=== PATIENT | male | born 1945 | race Caucasian/White ===

== ENCOUNTER → 2020-03-18 | Outpatient (CLI) | payer OTHER | END | disposition home or self-care (01) | LOC: RADCTMAIN 17:17 | PROVIDERS: ATTEND Surgery | DX: I65.29 Occlusion and stenosis of unspecified carotid artery (principal) | CPT/HCPCS: 82565; 84520 ==

== ENCOUNTER → 2020-12-24 | Outpatient (CLI) | payer MEDICARE ==
[2020-12-24 15:47] LABS: Basophils % (A) 1 %; Eosinophils # (A) 0.1 k/uL (0-0.7); Eosinophils % (A) 2 %; HCT 29.6 % (39.0-53.0); HGB 10.2 gm/dL (13.0-17.5); Lymphocytes # (A) 1.4 k/uL (1.0-4.8); Lymphocytes % (A) 23 %; MCH 32.1 pg (25.0-35.0); MCHC 34.6 g/dL (31.0-37.0); MCV 92.8 fL (80.0-100.0); Monocytes # (A) 0.4 k/uL (0-1.0); Monocytes % (A) 6 %; Neutrophils # (A) 4.1 k/uL (1.3-7.7); Neutrophils % (A) 66 %; Platelet Count 184 k/uL (150-450); RBC 3.19 m/uL (4.30-5.90); RDW 13.3 % (11.5-15.5); WBC 6.2 k/uL (3.8-10.6)
[2020-12-24 15:55] LABS: Potassium 5.3 mmol/L (3.5-5.1)
== END | disposition home or self-care (01) ==
LOC: LABPAT 14:39
PROVIDERS: ATTEND Surgery
DX: Z01.818 Encounter for other preprocedural examination (principal); R94.31 Abnormal electrocardiogram [ECG] [EKG]; R00.1 Bradycardia, unspecified
CPT/HCPCS: 36415; 80051; 82565; 84520; 85025; 93005

== ENCOUNTER 2020-12-26 06:51 | Inpatient (IN) | payer MEDICARE ==
[2020-12-23 10:51] VITALS: BMI 29.0
[2020-12-26] MEDS ORDERED: MIDAZOLAM 2 MG/2 ML VIAL IV PRN (07:13)
[2020-12-26] MEDS ORDERED: LIDOCAINE 1% (10MG/ML) FOR IV START INTRADERMA PRN (07:13)
[2020-12-26] MEDS ORDERED: HYDROmorphone 0.5 MG/0.5 ML SYRINGE IVP PRN (07:13)
[2020-12-26] MEDS ORDERED: DEXAMETHASONE SOD PHOSPHATE 4 MG/ML 1 ML VIAL IV ONE (07:13)
[2020-12-26] MEDS ORDERED: ONDANSETRON 4 MG/2 ML VIAL IVP ONE (07:13)
[2020-12-26] MEDS ORDERED: NITROGLYCERIN-D5W PMX 50 MG in DEXTROSE/WATER 1 250ML.BAG IV SCH (07:30)
[2020-12-26] MEDS ORDERED: PHENYLEPHRINE 40 MG in SODIUM CHLORIDE 0.9% 250 ML IV SCH (07:30)
[2020-12-26] MEDS ORDERED: NITROGLYCERIN SL TABS 0.4 MG TAB SUBLINGUAL ONE (08:05)
[2020-12-26] MEDS ORDERED: GLYCOPYRROLATE 0.2 MG/ML 2 ML VIAL ONE (08:05)
[2020-12-26] MEDS ORDERED: ePHEDrine SULFATE/0.9% NACL/PF 50 MG/5 ML SYRINGE IV ONE (08:05)
[2020-12-26] MEDS ORDERED: PHENYLEPHRINE-0.9% NACL SYG 1,000 MCG/10 ML SYRINGE ONE (08:05)
[2020-12-26] MEDS ORDERED: LIDOCAINE 1% INJ 10MG/ML (20 ML MDV) ONE (08:05)
[2020-12-26] MEDS ORDERED: LABETALOL 5 MG/ML VIAL MDV ONE (08:05)
[2020-12-26] MEDS ORDERED: ROCURONIUM 10 MG/ML (5 ML VIAL) IV ONE (08:05)
[2020-12-26] MEDS ORDERED: fentaNYL (PF) 50 MCG/ML 2 ML AMP ONE (08:05)
[2020-12-26] MEDS ORDERED: MIDAZOLAM 2 MG/2 ML VIAL ONE (08:05)
[2020-12-26] MEDS ORDERED: PROPOFOL 10 MG/ML 20 ML VIAL IV ONE (08:05)
[2020-12-26] MEDS ORDERED: HEPARIN SODIUM,PORCINE 10,000 UNIT/ML 1 ML VIAL ONE (08:05)
[2020-12-26] MEDS ORDERED: ESMOLOL 100 MG/10 ML VIAL ONE (08:05)
[2020-12-26] MEDS: LACTATED RINGERS 1,000 ML IV SCH (08:05)
[2020-12-26] MEDS ORDERED: NEOSTIGMINE 1 MG/ML 10 ML VIAL ONE (08:05)
[2020-12-26] MEDS ORDERED: SODIUM CHLORIDE 0.9% 100 ML with CLINDAMYCIN 600 MG IV ONE ×2 (09:00)
[2020-12-26] MEDS ORDERED: LIDOCAINE 1% INJ 10MG/ML (20 ML MDV) SQ ONE (09:30)
[2020-12-26] MEDS ORDERED: THROMBIN (BOVINE) 5,000 UNIT VIAL TOPICAL ONE ×2 (09:31)
[2020-12-26] MEDS ORDERED: GELATIN SPONGE,ABSORB (LARGE) 1 EACH SPONGE TOPICAL ONE (09:31)
[2020-12-26] MEDS ORDERED: HEPARIN SODIUM (1,000 UNIT/ML) 2,000 UNIT in SODIUM CHLORIDE 0.9% 1,000 ML IRRIGATION ONE (09:45)
[2020-12-26] MEDS ORDERED: LACTATED RINGERS 1,000 ML IV ONE (11:38)
[2020-12-26] MEDS ORDERED: TRIMETHOBENZAMIDE 100 MG/ML 2 ML VIAL IM PRN (11:49)
[2020-12-26] MEDS ORDERED: ACETAMINOPHEN TAB 325 MG TAB PO PRN (11:49)
[2020-12-26] MEDS ORDERED: BENZOCAINE/MENTHOL LOZENG 1 EACH LOZENGE MUCOUS MEM PRN (11:49)
[2020-12-26] MEDS ORDERED: MAG HYDROX/AL HYDROX/SIMETH 30 ML CUP PO PRN (11:49)
--- NOTE | 2020-12-26 11:49 | P.OP ---
Date of Procedure: 12/26/20 Description of Procedure: Preoperative Diagnosis: [Left] Internal carotid artery stenosis Postoperative Diagnosis: Same Procedure: [Left] carotid endarterectomy with patch angioplasty Ultrasound-guided right common femoral vein access Placement of central venous catheter Anesthesia: GET Surgeon: Felecia Benson DO Asst.: Bebe Burton Estimated Blood Loss (ml): [75 mL] IV Fluids: [See records] Urine Output: [See anesthesia documentation] Specimen: [Cervical lymph nodes, left carotid plaque] Condition: stable Disposition: PACU Findings and indications: [Patient is a 75-year-old male who recently was recommended to undergo a carotid endarterectomy due hemodynamically significant stenosis. This is over 1 year ago that it was recommended, he was unable to undergo a CT angiogram due to his renal insufficiency nor an MRA due to his pacemaker device. Given these findings he was recommended to have a carotid endarterectomy based upon ultrasound imaging. Given the fact that had been so long since his previous imaging the office he was rescanned improve the patency. There was found to be continued severe high-grade stenosis. Risks and benefits were discussed. He presented to the hospital for intervention] Procedure in detail: After written informed consent was obtained the patient all risks benefits and competitions were described the patient is brought to the operative suite and laid in a supine position. There was significant difficulty in getting IV access by the anesthesia team therefore ultrasound was utilized in the right common femoral vein was identified. The area was cleansed with alcohol solution. Using ultrasound the common femoral vein was accessed on first stick with return of dark venous, nonpulsatile blood. Using Seldinger technique a previously flushed triple lumen catheter was placed and sutured in place. It aspirated and flushed well. The area of the neck was prepped and draped in usual sterile fashion. A timeout was performed in normal fashion antibiotics were administered prior to incision. An oblique incision was then created just anterior to the sternocleidomastoid musculature with a scalpel and dissection was carried down to the carotid sheath. The carotid sheath was then entered after facial vein was located and suture ligated in normal fashion. The common carotid, internal carotid, external carotid and superior thyroid arteries were located and dissected free in a meticulous fashion circumferentially and controlled with vessel loops. There was significant adherent tissue in the level of the carotid bulb. There were slightly enlarged lymph nodes that were sent for pathology Attention was then placed to locating the vagus nerve as well as hypoglossal nerve which were both spared. Once controlled, patient was administered heparin and followed with ACTs for appropriate heparinization. Once ACT was appropriate, the proximal and distal aspects of the dissection were then controlled with vascular clamps. Arteriotomy was then created with 11 blade scalpel and extended with Live Bills scissors. Utilizing pressure tubing stump pressures were obtained and were []. No shunt was required. An endarterectomy was then performed with a [place] elevator. The plaque was transected proximally and then feathered at the distal aspect of the internal carotid artery and removed. There was significant distal plaquing. It was tacked down with interrupted sutures of 7-0 Prolene. The area was copiously irrigated with heparinized saline and all free debris was removed. A 0.8 x 8 cm bovine pericardial patch was then chosen and patch angioplasty was performed with 6-0 Prolene suture in a running fashion. Prior to last sutures being placed the inflow was released flushing any free debris out of the patch. This was reclamped and the internal carotid artery was released revealing good brisk flow and was once again reclamped. The external carotid and superior thyroid artery were then released followed by the common carotid artery to allow any free debris to be flushed into the external system. Final sutures were pl aced and secured. Internal carotid artery control was then released. Good pulsatile flow was noted through the patch and a Doppler was utilized demonstrating good brisk flow into the internal, external carotid arteries without any signs of obstruction. Hemostasis was then assured with interrupted sutures of 6-0 Prolene as well as thrombin and Gelfoam. A 10-[place] ASHISH drain was then placed in normal fashion and secured with 3-0 nylon suture. The incision was then closed in a multilayer fashion after hemostasis was assured. The skin was then cleansed and dressings were placed. Patient tolerated the procedure well and was following commands and moving all extremities. Patient was then sent to PACU for recovery.
[2020-12-26 13:04] LABS: Glucose,Whole Blood 154 mg/dL (75-99)
[2020-12-26] MEDS ORDERED: AMMONIUM LACTATE 12% CREAM 140 GM TUBE TOPICAL PRN (13:51)
[2020-12-26] MEDS ORDERED: TRIAMCINOLONE 0.1% CREAM 80 GM TUBE TOPICAL PRN (13:51)
[2020-12-26] MEDS ORDERED: ALBUTEROL NEBULIZED 2.5 MG/3 ML INHALATION PRN (13:51)
--- NOTE | 2020-12-26 14:28 | P.CONS ---
History of Present Illness - Reason for Consult Congestive heart failure - History of Present Illness 75-year-old pleasant male is admitted for elective left sided carotid endarterectomy. Patient successfully underwent surgery. Patient does have history of congestive heart failure presently receiving IV fluids were discontinued. Patient states he has an EF of around 30% although echocardiac exam is not available in the system at this time. Patient has history of chronic kidney disease stage IV with baseline creatinine of around 2.1. Patient is presently on nitroglycerin drip. REVIEW OF SYSTEMS: CONSTITUTIONAL: No fever, no malaise, no fatigue. HEENT: No recent visual problems or hearing problems. Denied any sore throat. CARDIOVASCULAR: No chest pain, orthopnea, PND, no palpitations, no syncope. PULMONARY: No shortness of breath, no cough, no hemoptysis. GASTROINTESTINAL: No diarrhea, no nausea, no vomiting, no abdominal pain. NEUROLOGICAL: No headaches, no weakness, no numbness. HEMATOLOGICAL: Denies any bleeding or petechiae. GENITOURINARY: Denies any burning micturition, frequency, or urgency. MUSCULOSKELETAL/RHEUMATOLOGICAL: Denies any joint pain, swelling, or any muscle pain. ENDOCRINE: Denies any polyuria or polydipsia. The rest of the 14-point review of systems is negative. PHYSICAL EXAMINATION: GENERAL: The patient is alert and oriented x3, not in any acute distress. Well developed, well nourished. HEENT: Pupils are round and equally reacting to light. EOMI. No scleral icterus. No conjunctival pallor. Normocephalic, atraumatic. No pharyngeal erythema. No thyromegaly. Left-sided Noted postsurgical effect CARDIOVASCULAR: S1 and S2 present. No murmurs, rubs, or gallops. PULMONARY: Chest is clear to auscultation, no wheezing or crackles. ABDOMEN: Soft, nontender, nondistended, normoactive bowel sounds. No palpable organomegaly. MUSCULOSKELETAL: No joint swelling or deformity. EXTREMITIES: No cyanosis, clubbing, or pedal edema. NEUROLOGICAL: Gross neurological examination did not reveal any focal deficits. SKIN: No rashes. Assessment and plan Congestive heart failure chronic systolic dysfunction without any acute exacerbation IV fluids were discontinued patient will be resumed and home dose of 4 Lasix and Aldactone. -Hyperkalemia secondary to potassium supplementation and lisinopril lisinopril probably will be continued will hold off on as an supplementation repeat potassium tomorrow -Gastroesophageal reflux disease -Hyperlipidemia -Hypertension -COPD without any acute exacerbation patient quit smoking many years ago DVT prophylaxis: As per primary service Past Medical History Past Medical History: Cancer, Heart Failure, COPD, GERD/Reflux, Hyperlipidemia, Hypertension, Myocardial Infarction ([place]), Osteoarthritis ([place]), Pneumonia, Skin Disorder Additional Past Medical History / Comment(s): blockage left carotid artery, hx palpications, red itchy skin areas, dry skin, anemia, hx prostate cancer-tx with implants, Last Myocardial Infarction Date:: unknown History of Any Multi-Drug Resistant Organisms: None Reported Past Surgical History: AICD, Hernia Repair, Tonsillectomy Past Anesthesia/Blood Transfusion Reactions: No Reported Reaction Additional Past Anesthesia/Blood Transfusion Reaction / Comm: claustrophobia Type of Cardiac Device: AICD Device Placement Date:: St [facility] Smoking Status: Former smoker - Past Family History Father Family Medical History: CVA/TIA, Myocardial Infarction ([place]) Medications and Allergies Home Medications Medication Instructions Recorded Confirmed Type Albuterol Sulfate [Proair Hfa] 1 - 2 puff INHALATION BID PRN 12/23/20 12/23/20 History Ammonium Lactate Cream [Lac-Hydrin 1 applic TOPICAL DAILY PRN 12/23/20 12/23/20 History 12% Cream] Aspirin [Adult Low Dose Aspirin EC] 81 mg PO DAILY 12/23/20 12/23/20 History Budesonide/Formoterol Fumarate 2 puff INHALATION BID 12/23/20 12/23/20 History [Budesonide-Formoterol 160-4.5] Carvedilol [Coreg] 12.5 mg PO BID 12/23/20 12/23/20 History Furosemide [Lasix] 40 mg PO DAILY 12/23/20 12/23/20 History Simvastatin [Zocor] 40 mg PO HS 12/23/20 12/23/20 History Spironolactone [Aldactone] 25 mg PO DAILY 12/23/20 12/23/20 History Tamsulosin HCl [Flomax] 0.4 mg PO BID 12/23/20 12/23/20 History Tiotropium 2.5 Mcg/Puff [Spiriva 2 puff INHALATION DAILY 12/23/20 12/23/20 History Respimat 2.5 Mcg] Triamcinolone 0.1% Cream [Kenalog 1 applicatio TOPICAL DAILY PRN 12/23/20 12/23/20 History 0.1% Cream] lisinopriL [Zestril] 5 mg PO DAILY 12/23/20 12/23/20 History Potassium Chloride [Potassium 8 meq PO DAILY 12/26/20 12/26/20 History Chloride ER] Allergies Allergy/AdvReac Type Severity Reaction Status Date / Time cephalexin [From Keflex] Allergy shakes and Verified 12/26/20 07:20 nervous feeling iodine Allergy Unknown Verified 12/26/20 07:20 levofloxacin [From Levaquin] Allergy Rash/Hives Verified 12/26/20 07:20 Physical Exam Vitals: Vital Signs Temp Pulse Resp BP BP BP Pulse Ox 12/26/20 12:45 62 16 175/79 140/65 100 12/26/20 12:30 62 16 170/62 162/56 100 12/26/20 12:15 62 16 170/62 168/74 100 12/26/20 12:00 63 16 162/74 172/50 100 12/26/20 11:53 96.8 F L 62 16 155/65 167/69 99 12/26/20 07:35 97.1 F L 67 16 155/63 150/65 98 Intake and Output 12/25/20 12/26/20 12/26/20 22:59 06:59 14:59 Intake Total 1805 Output Total 2150 Balance -345 Intake: IV 1805 Output: Urine 2100 Estimated Blood Loss 50 Other: Weight 95 kg Results CBC & Chem 7: 12/26/20 08:05 Labs: Abnormal Lab Results - Last 24 Hours (Table) 12/26/20 12/26/20 Range/Units 08:05 13:03 Potassium 5.2 H (3.5-5.1) mmol/L POC Glucose (mg/dL) 154 H (75-99) mg/dL
[2020-12-26 15:23] LABS: Basophils % (A) 0 %; Eosinophils % (A) 0 %; HCT 29.7 % (39.0-53.0); HGB 10.4 gm/dL (13.0-17.5); Lymphocytes # (A) 0.8 k/uL (1.0-4.8); Lymphocytes % (A) 9 %; MCH 31.6 pg (25.0-35.0); MCHC 34.9 g/dL (31.0-37.0); MCV 90.5 fL (80.0-100.0); Mean Platelet Volume 8.2; Monocytes # (A) 0.2 k/uL (0-1.0); Monocytes % (A) 2 %; Neutrophils # (A) 8.3 k/uL (1.3-7.7); Neutrophils % (A) 89 %; Platelet Count 193 k/uL (150-450); RBC 3.29 m/uL (4.30-5.90); WBC 9.4 k/uL (3.8-10.6)
[2020-12-26 15:40] LABS: INR 0.9 (<1.2); Prothrombin Time 10.2 sec (9.0-12.0)
[2020-12-26 15:50] LABS: Calcium 9.3 mg/dL (8.4-10.2); Potassium 4.8 mmol/L (3.5-5.1)
--- NOTE | 2020-12-26 16:37 | P.CNPUL ---
History of Present Illness Consult date: 12/26/20 Requesting physician: Felecia Benson Reason for consult: other Chief complaint: severe carotid stenosis History of present illness: 75-year-old white male patient with past medical history of significant left- sided carotid stenosis, hypertension, hyperlipidemia, chronic CHF with systolic dysfunction, and ejection fraction of 30%, AICD placement COPD not oxygen dependent at baseline, history of prostate cancer, former smoker, patient carries [id number] smoking history currently in remission for the past 6 years who underwent left-sided carotid endarterectomy today on 12/26/2020. Following the procedure patient is seen in intensive care unit where he was admitted for close hemodynamic monitoring, he is resting comfortably in bed, breathing comfortably, he is currently on 6 L of oxygen with a pulse ox 100%. Afebrile, hemodynamically stable, he is on small amount of IV nitroglycerin infusing at a rate of 15 mics per kilo per minute, and 0.9 normal saline at 10 mL per hour, in sinus mechanism, left neck incision is clean dry and intact, with small soft hematoma along the incision line. ASHISH drain draining small amount of cigarettes output with some clots. Trachea is midline, patient is breathing comfortably. Review of Systems All systems: negative Constitutional: Denies chills, Denies fever Eyes: denies blurred vision, denies pain Ears, nose, mouth and throat: Denies headache, Denies sore throat Cardiovascular: Denies chest pain, Denies shortness of breath Respiratory: Reports dyspnea, Denies cough Gastrointestinal: Denies abdominal pain, Denies diarrhea, Denies nausea, Denies vomiting Musculoskeletal: Denies myalgias Integumentary: Denies pruritus, Denies rash Neurological: Denies numbness, Denies weakness Psychiatric: Denies anxiety, Denies depression Endocrine: Denies fatigue, Denies weight change Past Medical History Past Medical History: Cancer, Heart Failure, COPD, GERD/Reflux, Hyperlipidemia, Hypertension, Myocardial Infarction ([place]), Osteoarthritis ([place]), Pneumonia, Skin Disorder Additional Past Medical History / Comment(s): blockage left carotid artery, hx palpications, red itchy skin areas, dry skin, anemia, hx prostate cancer-tx with implants, Last Myocardial Infarction Date:: unknown History of Any Multi-Drug Resistant Organisms: None Reported Past Surgical History: AICD, Hernia Repair, Tonsillectomy Past Anesthesia/Blood Transfusion Reactions: No Reported Reaction Additional Past Anesthesia/Blood Transfusion Reaction / Comment(s): cla ustrophobia Type of Cardiac Device: AICD Device Placement Date:: Smoking Status: Former smoker - Past Family History Father Family Medical History: CVA/TIA, Myocardial Infarction ([place]) Medications and Allergies Home Medications Medication Instructions Recorded Confirmed Type Albuterol Sulfate [Proair Hfa] 1 - 2 puff INHALATION BID PRN 12/23/20 12/23/20 History Ammonium Lactate Cream [Lac-Hydrin 1 applic TOPICAL DAILY PRN 12/23/20 12/23/20 History 12% Cream] Aspirin [Adult Low Dose Aspirin EC] 81 mg PO DAILY 12/23/20 12/23/20 History Budesonide/Formoterol Fumarate 2 puff INHALATION BID 12/23/20 12/23/20 History [Budesonide-Formoterol 160-4.5] Carvedilol [Coreg] 12.5 mg PO BID 12/23/20 12/23/20 History Furosemide [Lasix] 40 mg PO DAILY 12/23/20 12/23/20 History Simvastatin [Zocor] 40 mg PO HS 12/23/20 12/23/20 History Spironolactone [Aldactone] 25 mg PO DAILY 12/23/20 12/23/20 History Tamsulosin HCl [Flomax] 0.4 mg PO BID 12/23/20 12/23/20 History Tiotropium 2.5 Mcg/Puff [Spiriva 2 puff INHALATION DAILY 12/23/20 12/23/20 History Respimat 2.5 Mcg] Triamcinolone 0.1% Cream [Kenalog 1 applicatio TOPICAL DAILY PRN 12/23/20 12/23/20 History 0.1% Cream] lisinopriL [Zestril] 5 mg PO DAILY 12/23/20 12/23/20 History Potassium Chloride [Potassium 8 meq PO DAILY 12/26/20 12/26/20 History Chloride ER] Allergies Allergy/AdvReac Type Severity Reaction Status Date / Time cephalexin [From Keflex] Allergy shakes and Verified 12/26/20 07:20 nervous feeling iodine Allergy Unknown Verified 12/26/20 07:20 levofloxacin [From Levaquin] Allergy Rash/Hives Verified 12/26/20 07:20 Physical Exam Vitals: Vital Signs Temp Pulse Pulse Resp BP BP BP 12/26/20 16:00 64 16 145/59 12/26/20 15:45 65 16 150/64 12/26/20 15:30 62 16 147/65 12/26/20 15:15 61 17 152/62 12/26/20 15:00 62 13 155/65 12/26/20 14:45 56 L 13 152/66 12/26/20 14:30 62 11 L 146/67 12/26/20 14:00 57 L 21 157/71 12/26/20 13:45 58 L 13 151/71 12/26/20 13:30 59 L 14 167/69 12/26/20 13:15 59 L 14 158/72 12/26/20 12:45 62 16 175/79 12/26/20 12:30 62 16 170/62 12/26/20 12:15 62 16 170/62 12/26/20 12:00 63 16 162/74 12/26/20 11:53 96.8 F L 62 16 155/65 12/26/20 07:35 97.1 F L 67 16 155/63 150/65 BP Pulse Ox 12/26/20 16:00 99 12/26/20 15:45 99 12/26/20 15:30 98 12/26/20 15:15 98 12/26/20 15:00 99 12/26/20 14:45 99 12/26/20 14:30 97 12/26/20 14:00 99 12/26/20 13:45 99 12/26/20 13:30 100 12/26/20 13:15 100 12/26/20 12:45 140/65 100 12/26/20 12:30 162/56 100 12/26/20 12:15 168/74 100 12/26/20 12:00 172/50 100 12/26/20 11:53 167/69 99 12/26/20 07:35 98 Intake and Output 12/26/20 12/26/20 12/26/20 06:59 14:59 22:59 Intake Total 1805 Output Total 2170 Balance -365 Intake: IV 1805 Output: Drainage 20 Left Neck 20 Urine 2100 Estimated Blood Loss 50 Other: Weight 95 kg GENERAL EXAM: Alert, very pleasant, 64-year-old white female, resting in bed, on 6 L of oxygen comfortable in no apparent distress. HEAD: Normocephalic/atraumatic. EYES: Normal reaction of pupils, equal size. Conjunctiva pink, sclera white. NOSE: Clear with pink turbinates. THROAT: No erythema or exudates. NECK: No masses, no JVD, no thyroid enlargement, no adenopathy. Left neck oblique incision is clean dry and intact, with small amount of swelling and hematoma along the incision line, soft, ASHISH drain is in place draining small amount of sanguinous output with some clots CHEST: No chest wall deformity. Symmetrical expansion. LUNGS: Equal air entry with no crackles, wheeze, rhonchi or dullness. CVS: Regular rate and rhythm, normal S1 and S2, no gallops, no murmurs, no rubs ABDOMEN: Soft, nontender. No hepatosplenomegaly, normal bowel sounds, no guarding or rigidity. EXTREMITIES: No clubbing, no edema, no cyanosis, 2+ pulses and upper and lower extremities. MUSCULOSKELETAL: Muscle strength and tone normal. SPINE: No scoliosis or deformity SKIN: No rashes CENTRAL NERVOUS SYSTEM: Alert and oriented -3. No focal deficits, tone is normal in all 4 extremities. PSYCHIATRIC: Alert and oriented -3. Appropriate affect. Intact judgment and insight. Results - Laboratory Findings CBC and BMP: 12/26/20 15:15 12/26/20 15:15 PT/INR, D-dimer PT 10.2 sec (9.0-12.0) 12/26/20 15:15 INR 0.9 (<1.2) 12/26/20 15:15 Abnormal lab findings: Abnormal Labs 12/26/20 12/26/20 12/26/20 08:05 13:03 15:15 RBC 3.29 L Hgb 10.4 L Hct 29.7 L Neutrophils # 8.3 H Lymphocytes # 0.8 L Potassium 5.2 H Chloride Carbon Dioxide BUN Creatinine Glucose POC Glucose (mg/dL) 154 H 12/26/20 15:15 RBC Hgb Hct Neutrophils # Lymphocytes # Potassium Chloride 110 H Carbon Dioxide 16 L BUN 31 H Creatinine 1.70 H Glucose 151 H POC Glucose (mg/dL) Assessment and Plan Plan: Assessment: #1. Severe left-sided carotid stenosis, status post carotid endarterectomy, postoperative day #0 #2. Hypertension #3. Hyperlipidemia #4. History of systolic CHF #5. Ischemic cardiomyopathy status post AICD placement #6. History of [id number] smoking in remission for last 6 years #7. COPD not oxygen dependent at baseline #8. Peripheral vascular disease Plan: Continue antibiotics per vascular surgery Hemodynamic patient is stable, on small amount of nitroglycerin Monitor neurological status every 4 hours Monitor incision site for bleeding or increased hematoma Home medications have been restarted Pain control Incentive spirometer to the bedside Monitor left neck hematoma Monitor ASHISH drain output Patient will be ICU overnight Time with Patient: Greater than 30
[2020-12-26] MEDS: carvediloL 12.5 MG TAB PO SCH (17:54)
[2020-12-26] MEDS: TAMSULOSIN 0.4 MG CAP.ER.24H PO SCH (20:56)
[2020-12-26] MEDS: HEPARIN SODIUM,PORCINE/PF 5,000 UNIT/0.5 ML SYRINGE SQ SCH (20:56)
[2020-12-26] MEDS ORDERED: ATORVASTATIN 20 MG TAB PO SCH (21:00)
[2020-12-26] MEDS: SYMBICORT 160-4.5 MCG INHALER INHALATION SCH (21:35)
[2020-12-27 02:02] VITALS: TEMP 98.7
[2020-12-27 04:58] LABS: Basophils % (A) 0 %; Eosinophils % (A) 0 %; HCT 27.9 % (39.0-53.0); HGB 9.7 gm/dL (13.0-17.5); Lymphocytes # (A) 0.8 k/uL (1.0-4.8); Lymphocytes % (A) 9 %; MCH 31.4 pg (25.0-35.0); MCHC 34.7 g/dL (31.0-37.0); MCV 90.5 fL (80.0-100.0); Mean Platelet Volume 8.9; Monocytes # (A) 0.5 k/uL (0-1.0); Monocytes % (A) 5 %; Neutrophils # (A) 7.8 k/uL (1.3-7.7); Neutrophils % (A) 85 %; Platelet Count 192 k/uL (150-450); RBC 3.08 m/uL (4.30-5.90); RDW 13.2 % (11.5-15.5); WBC 9.3 k/uL (3.8-10.6)
[2020-12-27] MEDS: SYMBICORT 160-4.5 MCG INHALER INHALATION SCH (07:30)
[2020-12-27] MEDS ORDERED: TIOTROPIUM 2.5 MCG INHALER INHALATION SCH (08:00)
[2020-12-27] MEDS ORDERED: IPRATROPIUM 0.5 MG/2.5 ML NEBU INHALATION SCH (08:00)
[2020-12-27] MEDS: TAMSULOSIN 0.4 MG CAP.ER.24H PO SCH (08:36)
[2020-12-27] MEDS: carvediloL 12.5 MG TAB PO SCH (08:36)
[2020-12-27] MEDS: HEPARIN SODIUM,PORCINE/PF 5,000 UNIT/0.5 ML SYRINGE SQ SCH (08:36)
--- NOTE | 2020-12-27 08:55 | P.PN ---
Subjective Progress Note Date: 12/27/20 Principal diagnosis: Left carotid stenosis, status post carotid endarterectomy postoperative day #1 75-year-old white male patient with past medical history of significant left-s ided carotid stenosis, hypertension, hyperlipidemia, chronic CHF with systolic dysfunction, and ejection fraction of 30%, AICD placement COPD not oxygen dependent at baseline, history of prostate cancer, former smoker, patient carries [id number] smoking history currently in remission for the past 6 years who underwent left-sided carotid endarterectomy today on 12/26/2020. Following the procedure patient is seen in intensive care unit where he was admitted for close hemodynamic monitoring, he is resting comfortably in bed, breathing comfortably, he is currently on 6 L of oxygen with a pulse ox 100%. Afebrile, hemodynamically stable, he is on small amount of IV nitroglycerin infusing at a rate of 15 mics per kilo per minute, and 0.9 normal saline at 10 mL per hour, in sinus mechanism, left neck incision is clean dry and intact, with small soft hematoma along the incision line. ASHISH drain draining small amount of cigarettes output with some clots. Trachea is midline, patient is breathing comfortably. The patient seen today 12/27/2020 in follow-up in the intensive care unit. He is currently sitting up in bed. Awake and alert in no acute distress. His only complaint is that of difficulty sleeping last night. No neurologic deficits. No pain tingling or numbness of the extremities. No difficulty with speech. No headache. No blurred vision. Dressing to the left neck is dry and intact. ASHISH drain in place with minimal serosanguineous drainage. He is maintaining O2 saturations in the upper 90s on room air. She's been afebrile. Hemodynamically stable. White count 9.3. Hemoglobin 9.7. Platelets 192. He remains on Plavix and aspirin. Continued on Symbicort and albuterol. Heparin for DVT prophylaxis. He is hoping to go home today. Objective - Vital Signs Vital signs: Vital Signs Temp 98.7 F 12/27/20 04:00 Pulse 89 12/27/20 07:00 Resp 20 12/27/20 07:00 BP 130/76 12/27/20 07:00 Pulse Ox 99 12/27/20 07:00 Intake & Output 12/26/20 12/27/2012/27/21 18:59 06:59 18:59 Intake Total 1805 520 20 Output Total 2740 805 Balance -935 -285 20 Weight 95 kg 97 kg Intake: IV 1805 220 20 Lactated Ringers 1,000 ml 220 20 @ 20 mls/hr IV .Q24H [facility] Rx#:[id number] Oral 300 Output: Drainage 40 Left Neck 40 Urine 2650 805 Estimated Blood Loss 50 Other: Voiding Method Indwelling Catheter Indwelling Catheter # Voids 1 0 - Exam GENERAL EXAM: Alert, active, very pleasant 75-year-old male patient, on room air, comfortable in no apparent distress. HEAD: Normocephalic. EYES: Normal reaction of pupils, equal size. NOSE: Clear with pink turbinates. THROAT: No erythema or exudates. NECK: Dressing to the left neck dry and intact, ASHISH drain in place. CHEST: No chest wall deformity. LUNGS: Equal air entry with no crackles, wheeze, rhonchi or dullness. CVS: S1 and S2 normal with no audible murmur, regular rhythm. ABDOMEN: No hepatosplenomegaly, normal bowel sounds, no guarding or rigidity. SPINE: No scoliosis or deformity SKIN: No rashes CENTRAL NERVOUS SYSTEM: No focal deficits, tone is normal in all 4 extremities. EXTREMITIES: There is no peripheral edema. No clubbing, no cyanosis. Peripheral pulses are intact. - Labs CBC & Chem 7: 12/27/20 04:38 12/26/20 15:15 Labs: Abnormal Lab Results - Last 24 Hours (Table) 12/26/20 12/26/20 12/26/20 Range/Units 13:03 15:15 15:15 RBC 3.29 L (4.30-5.90) m/uL Hgb 10.4 L (13.0-17.5) gm/dL Hct 29.7 L (39.0-53.0) % Neutrophils # 8.3 H (1.3-7.7) k/uL Lymphocytes # 0.8 L (1.0-4.8) k/uL Chloride 110 H (98-107) mmol/L Carbon Dioxide 16 L (22-30) mmol/L BUN 31 H (9-20) mg/dL Creatinine 1.70 H (0.66-1.25) mg/dL Glucose 151 H (74-99) mg/dL POC Glucose (mg/dL) 154 H (75-99) mg/dL 12/27/20 Range/Units 04:38 RBC 3.08 L (4.30-5.90) m/uL Hgb 9.7 L (13.0-17.5) gm/dL Hct 27.9 L (39.0-53.0) % Neutrophils # 7.8 H (1.3-7.7) k/uL Lymphocytes # 0.8 L (1.0-4.8) k/uL Chloride (98-107) mmol/L Carbon Dioxide (22-30) mmol/L BUN (9-20) mg/dL Creatinine (0.66-1.25) mg/dL Glucose (74-99) mg/dL POC Glucose (mg/dL) (75-99) mg/dL Assessment and Plan Assessment: 1 Severe left-sided carotid stenosis, status post carotid endarterectomy, postoperative day #1 No neurologic focal deficits 2 Hypertension 3 Hyperlipidemia 4 History of systolic CHF 5 Ischemic cardiomyopathy status post AICD placement 6 History of [id number] smoking in remission for last 6 years 7 COPD not oxygen dependent at baseline 8 Peripheral vascular disease Plan: The patient was seen and evaluated by Dr. Isha Alfonso for discharge from the pulmonary and critical care standpoint Continue his home Symbicort, Spiriva, pro-air I, the cosigning physician, performed a history & physical examination of the patient. Lungs sounds are clear. Maintaining good O2 saturations in the 90s on room air. I discussed the assessment and plan of care with my nurse practitioner, Cristina Gustafson. I attest to the above note as dictated by her.
[2020-12-27] MEDS ORDERED: lisinopriL 5 MG TAB PO SCH (09:00)
[2020-12-27] MEDS ORDERED: CLOPIDOGREL 75 MG TAB PO SCH (09:00)
[2020-12-27] MEDS ORDERED: ASPIRIN 81 MG PO SCH (09:00)
[2020-12-27] MEDS ORDERED: FAMOTIDINE 20 MG TAB PO SCH (10:30)
--- NOTE | 2020-12-27 11:56 | P.PN ---
Subjective Progress Note Date: 12/27/20 Principal diagnosis: left carotid endarterectomy Patient seen and examined. Doing well. No complaints. Denies any lateralizing symptoms, fevers, chills, chest pain or shortness of breath. Eating well and has ambulated. Objective - Vital Signs Vital signs: Vital Signs Temp 98.7 F 12/27/20 04:00 Pulse 70 12/27/20 09:00 Resp 25 H 12/27/20 09:00 BP 128/45 12/27/20 09:00 Pulse Ox 97 12/27/20 09:00 Intake & Output 12/26/20 12/27/20 12/27/20 18:59 06:59 18:59 Intake Total 1805 520 60 Output Total 2740 805 Balance -935 -285 60 Weight 95 kg 97 kg Intake: IV 1805 220 60 Lactated Ringers 1,000 ml 220 60 @ 20 mls/hr IV .Q24H [facility] Rx#:[id number] Oral 300 Output: Drainage 40 Left Neck 40 Urine 2650 805 Estimated Blood Loss 50 Other: Voiding Method Indwelling Catheter Indwelling Catheter # Voids 1 0 - Exam left neck incision site is clean, and intact. +echymosis noted without hematoma. Drain in place. No focal deficits. Moving all extremities, no weakness. - Labs CBC & Chem 7: 12/27/20 04:38 12/26/20 15:15 Labs: Abnormal Lab Results - Last 24 Hours (Table) 12/26/20 12/26/20 12/26/20 Range/Units 13:03 15:15 15:15 RBC 3.29 L (4.30-5.90) m/uL Hgb 10.4 L (13.0-17.5) gm/dL Hct 29.7 L (39.0-53.0) % Neutrophils # 8.3 H (1.3-7.7) k/uL Lymphocytes # 0.8 L (1.0-4.8) k/uL Chloride 110 H (98-107) mmol/L Carbon Dioxide 16 L (22-30) mmol/L BUN 31 H (9-20) mg/dL Creatinine 1.70 H (0.66-1.25) mg/dL Glucose 151 H (74-99) mg/dL POC Glucose (mg/dL) 154 H (75-99) mg/dL 12/27/20 Range/Units 04:38 RBC 3.08 L (4.30-5.90) m/uL Hgb 9.7 L (13.0-17.5) gm/dL Hct 27.9 L (39.0-53.0) % Neutrophils # 7.8 H (1.3-7.7) k/uL Lymphocytes # 0.8 L (1.0-4.8) k/uL Chloride (98-107) mmol/L Carbon Dioxide (22-30) mmol/L BUN (9-20) mg/dL Creatinine (0.66-1.25) mg/dL Glucose (74-99) mg/dL POC Glucose (mg/dL) (75-99) mg/dL Assessment and Plan Assessment: 1. POD 1 Left CEA 2. Carotid stenosis Plan: D/C drain. Continue asa, plavix, statin Ok for d/c home today. follow up with Dr. Benson 2 weeks.
[2020-12-27 12:18] VITALS: BP 129/49; PULSE 66; RESP 13
--- NOTE | 2020-12-27 13:29 | P.PN ---
Subjective Progress Note Date: 12/27/20 - Reason for Consult Congestive heart failure - History of Present Illness 75-year-old pleasant male is admitted for elective left sided carotid endarter ectomy. Patient successfully underwent surgery. Patient does have history of congestive heart failure presently receiving IV fluids were discontinued. Patient states he has an EF of around 30% although echocardiac exam is not available in the system at this time. Patient has history of chronic kidney disease stage IV with baseline creatinine of around 2.1. Patient is presently on nitroglycerin drip. 12/27/2020 Patient is seen and evaluated in follow-up this morning status post left carotid endarterectomy with Dr. Benson and continues to be closely monitored in the ICU. Patient is being discharged today per patient and nursing staff and patient is anticipating discharge. Surgical dressing appears to have old blood noted and drain with minimal output noted as well. Patient continues on aspirin and Plavix per vascular surgery recommendations and a prescription has been provided. BMP pending and provided prescriptions for outpatient follow-up to monitor kidney functions closely. . the patient to continue to hold Lasix and Aldactone until repeat labs and close follow-up with vascular surgery along with primary care provider. Up and working with physical therapy and walking the halls with no difficulties. Patient having some mild throat irritation and will use Cepacol as needed. Patient also states he has some acid indigestion and uses Pepcid and requesting Pepcid. Vital signs are stable, patient is on room air. Review of systems: Constitutional: No reports of fatigue, fever, or chills Cardiovascular: No reports of chest pain or palpitations Respiratory: No reports of shortness of breath or cough GI: No reports of nausea, vomiting, or diarrhea : No reports of dysuria or retention Neurovascular: No reports of weakness or numbness Active Medications Acetaminophen (Acetaminophen Tab 325 Mg Tab) 650 mg PO Q4HR PRN PRN Reason: Mild Pain Al Hydroxide/Mg Hydroxide (Mag Hydrox/Al Hydrox/Simeth 30 Ml Cup) 30 ml PO Q6HR PRN PRN Reason: Indigestion Last Admin: 12/26/20 20:57 Dose: 30 ml Documented by: Albuterol Sulfate (Albuterol Nebulized 2.5 Mg/3 Ml) 2.5 mg INHALATION RT-BID PRN PRN Reason: sob Aspirin (Aspirin 81 Mg) 81 mg PO DAILY [facility] Last Admin: 12/27/20 08:36 Dose: 81 mg Documented by: Atorvastatin Calcium (Atorvastatin 20 Mg Tab) 20 mg PO HS [facility] Last Admin: 12/26/20 20:56 Dose: 20 mg Documented by: Benzocaine/Menthol (Benzocaine/Menthol Lozeng 1 Each Lozenge) 1 each MUCOUS MEM Q2HR PRN PRN Reason: Sore Throat Last Admin: 12/27/20 00:44 Dose: 1 each Documented by: Budesonide/Formoterol Fumarate (Symbicort 160-4.5 Mcg Inhaler) 2 puff INHALATION RT-BID [facility] Last Admin: 12/27/20 07:30 Dose: 2 puff Documented by: Carvedilol (Carvedilol 12.5 Mg Tab) 12.5 mg PO BID-W/MEALS [facility] Last Admin: 12/27/20 08:36 Dose: 12.5 mg Documented by: Clopidogrel Bisulfate (Clopidogrel 75 Mg Tab) 75 mg PO DAILY [facility] Last Admin: 12/27/20 08:36 Dose: 75 mg Documented by: Famotidine (Famotidine 20 Mg Tab) 20 mg PO DAILY [facility] Last Admin: 12/27/20 11:48 Dose: Not Given Documented by: Heparin Sodium (Porcine) (Heparin Sodium,Porcine/Pf 5,000 Unit/0.5 Ml Syringe) 5,000 unit SQ Q12HR [facility] Last Admin: 12/27/20 08:36 Dose: 5,000 unit Documented by: Nitroglycerin/Dextrose 50 mg/ (IV Solution) 250 mls @ 0 mls/hr IV .Q0M [facility]; Protocol Last Titration: 12/26/20 17:00 Dose: 10 mcg/min, 3 mls/hr Documented by: Lactated Ringer's (Lactated Ringers) 1,000 mls @ 20 mls/hr IV .Q24H [facility] Last Admin: 12/26/20 08:05 Dose: 200 mls Documented by: Lactic Acid (Ammonium Lactate 12% Cream 140 Gm Tube) 1 applic TOPICAL DAILY PRN; Protocol PRN Reason: Rash Lidocaine HCl (Lidocaine 1% (10mg/Ml) For Iv Start) 0.1 ml INTRADERMA PER PROTOCOL PRN PRN Reason: IV Start Last Admin: 12/26/20 08:05 Dose: 0.1 ml Documented by: Lisinopril (Lisinopril 5 Mg Tab) 5 mg PO DAILY [facility] Last Admin: 12/27/20 08:36 Dose: 5 mg Documented by: Tamsulosin HCl (Tamsulosin 0.4 Mg Cap.Er.24h) 0.4 mg PO BID [facility] Last Admin: 12/27/20 08:36 Dose: 0.4 mg Documented by: Tiotropium [place] (Tiotropium 2.5 Mcg Inhaler) 2 puff INHALATION RT-DAILY [facility] Last Admin: 12/27/20 08:27 Dose: 2 puff Documented by: Triamcinolone Acetonide (Triamcinolone 0.1% Cream 80 Gm Tube) 1 applic TOPICAL DAILY PRN; Protocol PRN Reason: Rash Trimethobenzamide HCl (Trimethobenzamide 100 Mg/Ml 2 Ml Vial) 200 mg IM Q4HR PRN PRN Reason: Nausea And Vomiting All medications have been reviewed PHYSICAL EXAMINATION: GENERAL: The patient is alert and oriented x3, not in any acute distress. Well developed, well nourished. HEENT: Pupils are round and equally reacting to light. EOMI. No scleral icterus. No conjunctival pallor. Normocephalic, atraumatic. No pharyngeal erythema. No thyromegaly. Left-sided Noted surgical dressing is being changed by vascular surgery with drain being removed CARDIOVASCULAR: S1 and S2 present. No murmurs, rubs, or gallops. PULMONARY: Chest is clear to auscultation, no wheezing or crackles. ABDOMEN: Soft, nontender, nondistended, normoactive bowel sounds. No palpable organomegaly. MUSCULOSKELETAL: No joint swelling or deformity. EXTREMITIES: No cyanosis, clubbing, or pedal edema. NEUROLOGICAL: Gross neurological examination did not reveal any focal deficits. SKIN: No rashes. Ecchymosis noted around the surgical site with no surrounding redness or swelling noted Assessment and plan: -Congestive heart failure chronic systolic dysfunction without any acute exacerbation -Acute kidney injury likely prerenal and will hold Lasix and Aldactone for 1-2 days until repeat labs are drawn to monitor kidney functions and then may resume scheduled dose -Hyperkalemia secondary to potassium supplementation and lisinopril, improved and is 4.8 -Gastroesophageal reflux disease -Hyperlipidemia -Hypertension -COPD without any acute exacerbation patient quit smoking many years ago -DVT prophylaxis: As per primary service -Full code Plan: Repeat BMP pending and creatinine was mildly elevated although trending down at 1.7 and recommending to hold Lasix and Aldactone for 2 days with follow-up labs in the outpatient setting and most likely will be able to resume scheduled medications. Patient anticipates being discharged today by vascular surgery and nursing staff has reported this. Recommending follow-up with primary care provider and repeat labs to monitor kidney functions. Prescription was provided. Will continue to follow along during hospitalization. Thank you for this consultation. Objective - Vital Signs Vital signs: Vital Signs Temp 98.7 F 12/27/20 04:00 Pulse 89 12/27/20 07:00 Resp 20 12/27/20 07:00 BP 130/76 12/27/20 07:00 Pulse Ox 99 12/27/20 07:00 Intake & Output 12/26/20 12/27/20 12/27/20 18:59 06:59 18:59 Intake Total 1805 520 20 Output Total 2740 805 Balance -935 -285 20 Weight 95 kg 97 kg Intake: IV 1805 220 20 Lactated Ringers 1,000 ml 220 20 @ 20 mls/hr IV .Q24H [facility] Rx#:[id number] Oral 300 Output: Drainage 40 Left Neck 40 Urine 2650 805 Estimated Blood Loss 50 Other: Voiding Method Indwelling Catheter Indwelling Catheter # Voids 1 0 - Labs CBC & Chem 7: 12/27/20 04:38 12/26/20 15:15 Labs: Abnormal Lab Results - Last 24 Hours (Table) 12/26/20 12/26/20 12/26/20 Range/Units 13:03 15:15 15:15 RBC 3.29 L (4.30-5.90) m/uL Hgb 10.4 L (13.0-17.5) gm/dL Hct 29.7 L (39.0-53.0) % Neutrophils # 8.3 H (1.3-7.7) k/uL Lymphocytes # 0.8 L (1.0-4.8) k/uL Chloride 110 H (98-107) mmol/L Carbon Dioxide 16 L (22-30) mmol/L BUN 31 H (9-20) mg/dL Creatinine 1.70 H (0.66-1.25) mg/dL Glucose 151 H (74-99) mg/dL POC Glucose (mg/dL) 154 H (75-99) mg/dL 12/27/20 Range/Units 04:38 RBC 3.08 L (4.30-5.90) m/uL Hgb 9.7 L (13.0-17.5) gm/dL Hct 27.9 L (39.0-53.0) % Neutrophils # 7.8 H (1.3-7.7) k/uL Lymphocytes # 0.8 L (1.0-4.8) k/uL Chloride (98-107) mmol/L Carbon Dioxide (22-30) mmol/L BUN (9-20) mg/dL Creatinine (0.66-1.25) mg/dL Glucose (74-99) mg/dL POC Glucose (mg/dL) (75-99) mg/dL
[2020-12-27 15:45] LABS: Potassium 4.7 mmol/L (3.5-5.1)
== END 2020-12-27 13:49 | disposition home or self-care (01) | DRG 38 ==
LOC: 2ORMAIN 06:51 → 2SICU 12:00
PROVIDERS: ADMIT Surgery; ATTEND Surgery
PROC: 03UL0JZ Supplement Left Internal Carotid Artery with Synthetic Substitute, Open Approach (ICD-10-PCS; 2020-12-26)
PROC: B54BZZA Ultrasonography of Right Lower Extremity Veins, Guidance (ICD-10-PCS; 2020-12-26)
PROC: 02HV33Z Insertion of Infusion Device into Superior Vena Cava, Percutaneous Approach (ICD-10-PCS; 2020-12-26)
PROC: B5181ZA Fluoroscopy of Superior Vena Cava using Low Osmolar Contrast, Guidance (ICD-10-PCS; 2020-12-26)
PROC: B548ZZA Ultrasonography of Superior Vena Cava, Guidance (ICD-10-PCS; 2020-12-26)
PROC: 06HM33Z Insertion of Infusion Device into Right Femoral Vein, Percutaneous Approach (ICD-10-PCS; 2020-12-26)
PROC: B54BZZA Ultrasonography of Right Lower Extremity Veins, Guidance (ICD-10-PCS; 2020-12-26)
PROC: 03CL0ZZ Extirpation of Matter from Left Internal Carotid Artery, Open Approach (ICD-10-PCS; principal; 2020-12-26 08:30)
DX: I65.22 Occlusion and stenosis of left carotid artery (principal); I13.0 Hypertensive heart and chronic kidney disease with heart failure and stage 1 through stage 4 chronic kidney disease, or unspecified chronic kidney disease; I50.22 Chronic systolic (congestive) heart failure; N17.9 Acute kidney failure, unspecified; N18.4 Chronic kidney disease, stage 4 (severe); L76.32 Postprocedural hematoma of skin and subcutaneous tissue following other procedure; J02.9 Acute pharyngitis, unspecified; D64.9 Anemia, unspecified; I25.5 Ischemic cardiomyopathy; I73.9 Peripheral vascular disease, unspecified; L85.3 Xerosis cutis; J44.9 Chronic obstructive pulmonary disease, unspecified; K21.9 Gastro-esophageal reflux disease without esophagitis; E78.5 Hyperlipidemia, unspecified; E87.5 Hyperkalemia; F40.240 Claustrophobia; I25.2 Old myocardial infarction; Z79.82 Long term (current) use of aspirin; Z79.899 Other long term (current) drug therapy; Z85.46 Personal history of malignant neoplasm of prostate; Z87.891 Personal history of nicotine dependence; Z95.810 Presence of automatic (implantable) cardiac defibrillator; Z88.1 Allergy status to other antibiotic agents; Z91.041 Radiographic dye allergy status; Y65.8 Other specified misadventures during surgical and medical care; Z87.19 Personal history of other diseases of the digestive system
CPT/HCPCS: 36415; 80048; 80051; 82565; 84132; 84520; 85025; 85610; 86850; 86900; 86901; 93005; 94640